=== PATIENT | male | born 1965 | race African-American/Black ===

== ENCOUNTER 2017-02-16 14:19 | Emergency (ER) | payer BC, OTHER ==
[2017-02-16 15:09] VITALS: BP 141/97
[2017-02-16] MEDS ORDERED: Lidocaine 1% 20 ML MDV INJECT ONE (15:12)
[2017-02-16] MEDS ORDERED: Ibuprofen 600 MG Tab PO ONE (15:12)
[2017-02-16] MEDS ORDERED: Bacitracin Oint 1 GM U/D Packet TOP ONE (15:45)
--- NOTE | 2017-02-16 15:45 | EDM.PDOC ---
ED HPI GENERAL MEDICAL PROBLEM - General Chief Complaint: Laceration Stated Complaint: CUT INDEX FINGER Time Seen by Provider: 02/16/17 15:00 Source of Information: Reports: Patient History Limitations: Reports: No Limitations - History of Present Illness INITIAL COMMENTS - FREE TEXT/NARRATIVE: Alex is a 51 year old male who presents to the ED today with a right index finger laceration. 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 Patient denies any other injuries, DT is up to date. Onset: Today, Sudden Right 2-Index finger Pain Score (Numeric/FACES): 2 - Related Data Allergies Allergy/AdvReac Type Severity Reaction Status Date / Time NARCOTICS Allergy Hyperactivi Uncoded 02/16/17 15:19 ty Home Meds: Home Meds Insulin Glarg,Human.Rec.Analog [LantUS Solostar] 35 unit SUBCUT BEDTIME [History] metFORMIN HCl [Metformin HCl] 750 mg PO BID 02/16/17 [History] Past Medical History Respiratory History: Reports: Asthma Endocrine/Metabolic History: Reports: Diabetes, Type II Immunologic History: Reports: Other (See Below) Other Immunologic History: lymph nodes by collar bone removed - Infectious Disease History Infectious Disease History: Reports: Chicken Pox Social & Family History - Tobacco Use Smoking Status *Q: Never Smoker - Caffeine Use Caffeine Use: Reports: Coffee - Recreational Drug Use Recreational Drug Use: No ED ROS GENERAL - Review of Systems Review Of Systems: ROS reveals no pertinent complaints other than HPI. ED EXAM, SKIN/RASH Exam: See Below Exam Limited By: No Limitations General Appearance: Alert, WD/WN, No Apparent Distress Respiratory/Chest: No Respiratory Distress Cardiovascular: Regular Rate, Rhythm Extremities: Normal Inspection, Normal Range of Motion, Normal Capillary Refill Neurological: Alert, Oriented, CN II-XII Intact Psychiatric: Normal Affect Skin: Warm, Dry, Other (1.5 cm superficial laceration to right index finger, left lateral portion, no nail involvement) ED SKIN PROCEDURES - Laceration/Wound Repair Right Finger Appearance: Superficial Anesthetic Type: Local Local Anesthesia - Lidocaine (Xylocaine): 1% Plain Local Anesthetic Volume: 3cc Skin Prep: Chlorhexidine (Hibiciens), Saline Closed with: Sutures Suture Size: other (5-0) # of Sutures: 5 Course - Vital Signs Last Recorded V/S: Last Vital Signs Temp 36.1 C 02/16/17 15:08 Pulse 83 02/16/17 15:08 Resp 16 02/16/17 15:08 BP 141/97 H 02/16/17 15:08 Pulse Ox 95 02/16/17 15:08 Alex is a 51 year old male who presents to the ED after sustaining a finger laceration at work. See HPI and focused exam. Suture repair done as noted in procedures. Wound care discussed. Patient agreeable and discharged in stable condition. - Orders/Labs/Meds Orders: Active Orders 24 hr Category Date Time Status Bacitracin [Bacitracin Oint 1 GM] Med 02/16/17 15:45 Once 1 dose TOP ONETIME ONE Medication Orders Bacitracin (Bacitracin Oint 1 Gm) 1 dose TOP ONETIME ONE Stop: 02/16/17 15:46 Meds: Medications Generic Name Dose Route Start Last Admin Trade Name Freq PRN Reason Stop Dose Admin Bacitracin 1 dose 02/16/17 15:45 Bacitracin Oint 1 Gm TOP 02/16/17 15:46 ONETIME ONE Discontinued Medications Generic Name Dose Route Start Last Admin Trade Name Freq PRN Reason Stop Dose Admin Ibuprofen 600 mg 02/16/17 15:12 02/16/17 15:25 Motrin PO 02/16/17 15:13 600 mg ONETIME ONE Administration Lidocaine HCl 20 ml 02/16/17 15:12 02/16/17 15:25 Xylocaine 1% INJECT 02/16/17 15:13 20 ml ONETIME ONE Administration Departure - Departure Time of Disposition: 16:00 Disposition: Home, Self-Care 01 Condition: Good Clinical Impression: Finger laceration Qualifiers: Encounter type: initial encounter Finger: index finger Damage to nail status: without damage Foreign body presence: without foreign body Laterality: right Qualified Code(s): S61.210A - Laceration without foreign body of right index finger without damage to nail, initial encounter - Discharge Information Instructions: Laceration Care, Adult, [id number] Referrals: PCP,None [Primary Care Provider] - Forms: ED Department Discharge Additional Instructions: Keep clean and dry Bacitracin twice daily for 3 days Suture removal in 7-10 days - My Orders Last 24 Hours: My Active Orders 02/16/17 15:45 Bacitracin [Bacitracin Oint 1 GM] 1 dose TOP ONETIME ONE - Assessment/Plan Last 24 Hours: My Active Orders 02/16/17 15:45 Bacitracin [Bacitracin Oint 1 GM] 1 dose TOP ONETIME ONE
== END 2017-02-16 16:55 | disposition home or self-care (01) ==
LOC: JP.ED 14:19
DX: S61.210A Laceration without foreign body of right index finger without damage to nail, initial encounter (principal); E11.9 Type 2 diabetes mellitus without complications; J45.909 Unspecified asthma, uncomplicated; Z79.4 Long term (current) use of insulin; Z88.5 Allergy status to narcotic agent; Z79.84 Long term (current) use of oral hypoglycemic drugs; W26.0XXA Contact with knife, initial encounter; Y99.0 Civilian activity done for income or pay
CPT/HCPCS: 12001; 99283; A9270